=== PATIENT | male | born 1940 | race Caucasian/White ===

== ENCOUNTER → 2016-11-30 | Day surgery (SDC) | payer MEDICARE ==
[~2016-11-30] MED LIST: DEXAMETHASONE SOD PHOS 4 MG/ML VIAL ONE; EPINEPHrine HCL (1:1000) 1 MG/ML VIAL ONE; ISOSULFAN BLUE 50 MG/5 ML VIAL SQ ONE; LACTATED RINGER'S 1000 ML INJ 1,000 ML ONE; MOXIFLOXACIN 0.5% OPHT SOLN 3 ML BTL ONE; ONDANSETRON HCL 4 MG/2 ML VIAL IV PUSH ONE; PHENYLEPHRINE HCL 10% OPTH SOLN 5 ML BTL ONE; PROPOFOL 200 MG/20 ML AMP IV ONE; SODIUM CHLORIDE 0.9% INJ 10 ML ONE; TETRACAINE 0.5% OPTH SOLN 15 ML BTL ONE; TOBRAMYCIN/DEXAMETHASONE OPTH OINT 3.5 GM TUBE ONE; ceFAZolin INJ 1,000 MG VIAL ONE; prednisoLONE ACETATE 1% OPHT SUSP 5 ML BTL ONE
--- NOTE | 2016-12-01 21:01 | TN ---
cc: MARGO MOISE MD Corrected Copy: 12/02/16 DATE OF SURGERY: 11/30/2016 DATE OF : 1940. PREOPERATIVE DIAGNOSIS: Vitreomacular adhesions, vitreomacular traction, epiretinal retinal membrane, right eye. POSTOPERATIVE DIAGNOSIS Vitreomacular adhesions, vitreomacular traction, epiretinal retinal membrane, right eye. PROCEDURE Pars plana vitrectomy, removal of vitreomacular traction, removal of internal limiting membrane/epiretinal membrane, air-fluid exchange, insertion 16% SF6 gas, right eye. COMPLICATIONS: None. BLOOD LOSS: Less than 1 cc. ANESTHESIA: General. Dr. Hernandez. INDICATIONS FOR PROCEDURE The patient presented with worsening visual acuity of his right eye. The patient was found to have severe vitreomacular traction as found in the optic nerve, the arcades around the fovea. The patient also had an epiretinal membrane and the combined tractional forces were severely distorting his vision. The patient elected for surgical correction. PROCEDURE NOTE After informed consent was obtained, the patient was brought to the operating room. General anesthesia was established. The right eye was prepped and draped in sterile fashion with Betadine in the conjunctival fornix. A 3 port pars plana vitrectomy was established with self-retaining infusion cannula. The core vitreous was evacuated and the tractional complexes were circumscribed. The tractional complexes was then carefully dissected free from the underlying retina and vasculature. The ERM/ILM complex was highlighted with ICG and removed with Pankaj ILM forceps. The retina had renewed mobility and better opposition to the underlying RPE. Scleral depressed examination revealed no untreated retinal holes, tears or detachments. Air-fluid exchange was carried out and 16% SF6 gas was instilled. The trocars were removed and sclerotomy was closed. Subconjunctival injection of Ancef and dexamethasone were given. The eye was patched with Tobramycin ointment. The patient was brought to the recovery room in stable condition. Continue followup with [facility] for his postoperative care. MD ZHEN Sweeney/SRINATH /6:47 PM /9:34 AM [facility]
== END | disposition home or self-care (01) ==
LOC: ESDC 09:41
PROVIDERS: ATTEND Ophthalmology
DX: H43.821 Vitreomacular adhesion, right eye (principal); H35.371 Puckering of macula, right eye
CPT/HCPCS: 00145; 67042; J0171; J0690; J1100; J2405; J3010; J7120; Q9968